=== PATIENT | female | born 1965 | race Caucasian/White ===

== ENCOUNTER 2016-10-21 15:14 | Emergency (ER) | payer MEDICARE ==
--- NOTE | 2016-10-21 16:50 | ED Physician Documentation ---
Fall - HISTORIAN Historian: patient - HPI Stated Complaint: fall Chief Complaint: Fall Additional Information: Tells nurse she fell yesterday. Tells this examiner that she fell today at 0500. Hit back of head on the concrete. Has bruised right upper arm. Says she falls a lot because she has had 4 knee replacements in 17 months. - ROS CONST: no problems - PAST HX Past History: other (chronic back pain, chronic pain) Allergies/Adverse Reactions: Allergies Allergy/AdvReac Type Severity Reaction Status Date / Time Penicillins AdvReac Hives Verified 10/21/16 15:33 Home Medications: Ambulatory Orders Medication Instructions Recorded Furosemide [Furosemide] 20 mg PO BID 01/28/16 Potassium Chloride [Klor-Con 10 mg PO DAILY 01/28/16 Sprinkle] Alprazolam [Alprazolam] 0.5 mg PO TID PRN 05/07/16 Oxycodone HCl/Acetaminophen 1 each PO QID 05/07/16 [Percocet 10/325] - SOCIAL HX Smoking History: cigarettes - FAMILY HX Family History: no significant history - VITAL SIGNS Vital Signs: Vital Signs Temp Pulse Resp BP Pulse Ox 98.6 F 97 H 18 149/79 96 10/21/16 15:40 10/21/16 15:40 10/21/16 15:40 10/21/16 15:40 10/21/16 15:40 - REVIEWED ASSESSMENTS Nursing Assessment Reviewed: Yes Vitals Reviewed: Yes Procedures Wound Location: head Wound Length: 3 cm Wound's Depth, Shape: linear Wound Explored: clean Betadine Prep?: No (chlorhexadine) Wound Repaired With: jerrod (3) Progress - Progress Progress: Right shoulder-three views CLINICAL HISTORY: Fall. Pain and bruising. FINDINGS: Examination right shoulder in multiple views demonstrates degenerative changes with narrowing of the acromioclavicular joint and osteophyte formation. Glenohumeral relationship is anatomic. There is no evident fracture. IMPRESSION: Degenerative changes in the acromioclavicular joint. No fracture. Electronically signed on Oct 21, 2016 4:45:05 PM CDT by: Johnnie BANEGAS non-negative for benzo's, opiates, oycodone (pt takes meds daily within these groupings) ED Results Lab/Radiology - Orders Orders: ED Orders Category Date Time Status SHOULDER 2 VIEWS OR MORE [RAD] Stat Exams 10/21/16 Taken UA [URINALYSIS] Routine Lab 10/21/16 Ordered UDS [DRUG SCREEN URINE MEDICAL ONLY] Routine Lab 10/21/16 Ordered Fall Physical Exam - Physical Exam General Appearance: no acute distress, alert Head: trauma (3 cm linear lac right occipitoparietal area, no active bleeding) Neck: painless ROM Eye: QUYEN (conjugate movements), lids & conjunct. nml ENT: nml external inspection, no dental injury (eating constantly while in ER) Resp/CVS: breath sounds nml, heart sounds nml Neuro: CN's nml as tested, sensation nml, motor nml, other (quite verbal. ) Skin: color nml, dry Back: other (movements w/o pain) Extremities: pelvis stable, other (walks to BR and back w/o apparent discomfort) Joint: Nml gait/weight bearing Discharge Clincal Impression: Contusion of right upper arm Referrals: Primary Doctor,No [Primary Care Provider] - 2 Days Home Medications: Ambulatory Orders Furosemide [Furosemide] 20 mg PO BID 01/28/16 Potassium Chloride [Klor-Con Sprinkle] 10 mg PO DAILY 01/28/16 Alprazolam [Alprazolam] 0.5 mg PO TID PRN 05/07/16 Oxycodone HCl/Acetaminophen [Percocet 10325] 1 each PO QID 05/07/16 Condition: Good Disposition: 01 HOME, SELF-CARE Decision to Admit: NO Decision Time: 17:00
[2016-10-21 17:19] VITALS: BP 160/77
--- NOTE | 2016-10-21 18:18 | Diagnostic Imaging Report ---
SATURNINO MONTILLA~ [facility] [id number] [facility] [address] [address] ~ ~ ~ ~ Report Submission Date: Oct 21, 2016 4:45:05 PM CDT Patient ~ Study Name: LISA LLAMAS ~ Date: Oct 21, 2016 4:22:47 PM CDT ~ Modality Type: CR Gender: F ~ Description: SHOULDER : 69 ~ Institution: [facility] Physician: SATURNINO MONTILLA ~ ~ ~ ~ Right shoulder-three views CLINICAL HISTORY: ~ Fall. ~Pain and bruising. FINDINGS: ~ Examination right shoulder in multiple views demonstrates degenerative changes with narrowing of the acromioclavicular joint and osteophyte formation. ~ Glenohumeral relationship is anatomic. ~There is no evident fracture. IMPRESSION: ~ Degenerative changes in the acromioclavicular joint. ~ No fracture. ~ Electronically signed on Oct 21, 2016 4:45:05 PM CDT by: Johnnie BARNES
[2016-10-22 05:19] LABS: AMPHETAMINE NEGATIVE ng/mL (<1000); BARBITURATES NEGATIVE ng/mL (<300); CANNABINOIDS NEGATIVE ng/mL (<50); COCAINE NEGATIVE ng/mL (<150); METHAMPHETAMINE NEGATIVE ng/mL (<1000); METHYLENEDIOXYMETHAMPHETAMINE NEGATIVE ng/mL (<500)
[2016-10-22 05:20] LABS: APPEARANCE,URINE CLEAR (CLEAR); COLOR,URINE YELLOW (YELLOW); OCCULT BLOOD,URINE TRACE-INTACT (NEGATIVE); PH URINE 5.5 (5.0 - 8.0); UROBILINOGEN URINE 0.2 Eu (0.2-1.0)
== END 2016-10-21 17:17 | disposition home or self-care (01) ==
LOC: ED 15:14
DX: S49.91XA Unspecified injury of right shoulder and upper arm, initial encounter (principal); W19.XXXA Unspecified fall, initial encounter; Y93.9 Activity, unspecified; Y99.9 Unspecified external cause status
CPT/HCPCS: 73030; 80365; 80377; 81002; 99283; G0481; G0482

== ENCOUNTER 2017-09-04 09:41 | Outpatient (CLI) | payer MEDICARE, OTHER ==
--- NOTE | 2017-09-04 15:49 | Diagnostic Imaging Report ---
BEBE PURDY [facility] [address] [facility] [address] [address] Report Submission Date: Sep 04, 2017 10:45:53 AM [employer] Patient Study Name: LISA LLAMAS Date: Sep 04, 2017 10:02:48 AM [employer] Modality Type: CR Gender: F Description: CHEST : 69 Institution: [facility] Physician: BEBE PURDY Examination: Plain film ribs bilateral History: BILATERAL RIB PAIN AFTER FALL (Hx) / RIB PAIN (DICOM Hx) / RIB PAIN ( Pt comments) Findings: 5 views of the left and right ribs demonstrates normal cortical margins. No fracture or dislocation. Underlying parenchymal without abnormality. Shoulder articular degenerative changes. Impression: No rib fracture/abnormality. Electronically signed on Sep 04, 2017 10:45:53 AM [employer] by: Serjio BARNES
== END 2017-09-04 09:42 ==
LOC: RAD 09:41
PROVIDERS: ATTEND Family Medicine
DX: R07.81 Pleurodynia (principal)
CPT/HCPCS: 71110

== ENCOUNTER 2017-10-01 04:35 | Emergency (ER) | payer MEDICARE, OTHER ==
[2017-10-01] MEDS ORDERED: HALOPERIDOL LACTATE 5 MG/ML VIAL IM ONE ×3 (05:26→05:53)
--- NOTE | 2017-10-01 06:38 | ED Physician Documentation ---
Altered Mental Status - HISTORIAN Historian: patient, other (law enforcement) - HPI Stated Complaint: aggitated, halucinating, brought in by audit tech Complaint: Altered Mental Status Onset: other (law enforcemens says she has recurrent hx of psyche breakdowns- she aparently has issues w/ her ex- who has custody of her daughter=- reportedly due to psyche problems. we have list of meds but no idea of compliance. after haldol 10mg im she became more calm and is allowing blood draw and urine for testing) Character of Altered Mental Status: disoriented, confused, combative Context: recent alcohol intake (pt cuffed to bed rail lt wrist at adm) Cognition is Usually: alert but confused Associated Symptoms: none (known at this time. one of the officers said he drove by her house several days ago in pvt auto and off duty and she was walking up and down sidewalk in front of her house thrashing arms yelling at apparent persons not there) - ROS EYES/ENT: denies: problems with vision CVS/RESP: denies: shortness of breath, palpitations, cough GI/: denies: abdominal pain, vomiting, nausea MS/SKIN/LYMPH: none - PAST HX Past History: confusion, psychiatric disorder, schizophrenia, bipolar (at fib in past htn ) Surgeries/Procedures: other (knee appy tonsils) - SOCIAL HX Smoking History: non-smoker Alcohol Use: other (unsure) Drug Use: other (unsure) - FAMILY HX Family History: no significant history - REVIEWED ASSESSMENTS Nursing Assessment Reviewed: Yes Vitals Reviewed: Yes <David Kirk R - Last Filed: 10/01/17 06:26> - HPI Last known Well Date: 10/01/17 Last Known Well Time: 00:00 (cannot confirm time; hard stop in EMR charting system) Last known Well Code/Unknown Code: Unknown - PAST HX Other History: A-Fib, hypertension - SOCIAL HX Drug Use: methamphetamines (patient reports usage) <WILLIAM CASSIDY - Last Filed: 10/01/17 11:43> - HPI Additional Information: pt brought in by police dept after she called them 2 times w/hallucinations saying people inhouse raping her daughter. next time she called yelling and screaming stranger in house standing on her steps. now lshe is thrashing about stating she was broughtv to ed against her will. we swere unable to get hsx or draw blood or get urine. we gave her haldol 2x 5mg each after which she became calm and will allow blood draw and urine (David Kirk) - PAST HX Allergies/Adverse Reactions: Allergies Allergy/AdvReac Type Severity Reaction Status Date / Time Penicillins AdvReac Hives Verified 10/01/17 05:20 Home Medications: Ambulatory Orders Medication Instructions Recorded Gabapentin [Neurontin] 300 mg PO DIRECTED 10/01/17 Metoprolol Tartrate [Lopressor] 50 mg PO DIRECTED 10/01/17 Prazosin HCl [Minipress] 1 mg PO DIRECTED 10/01/17 QUEtiapine FUMARATE [Seroquel] 300 mg PO DIRECTED 10/01/17 Rivaroxaban [Xarelto] 20 mg PO D 10/01/17 Tramadol HCl [Ultram] 50 mg PO DIRECTED 10/01/17 - VITAL SIGNS Vital Signs: Vital Signs Temp Pulse Resp BP Pulse Ox 98.6 F 124 H 20 96/77 99 10/01/17 04:43 10/01/17 04:43 10/01/17 04:43 10/01/17 04:43 10/01/17 04:43 Progress <David Kirk - Last Filed: 10/01/17 06:26> <WILLIAM CASSIDY - Last Filed: 10/01/17 11:43> - Progress Progress: 0700 Patient sleeping on stretcher 0830 Calm and cooperative with nursing; able to draw lab and obtain urine. 1000 Patient awake, continued to state people were in her apartment. Discussed lab results with patient; including positive methamphetamine UDS. Patient states she used 4-5 days ago. Discussed medications, patient reports taking her medications "sometimes" Will consult social media specialist. 1045 Patient reports frequent methamphetamine use. States she is moving today. Skyla working with patient's case management. Will attempt to find drug rehab placement. 1115 Patient refuses inpatient drug treatment. Continues to state she has to go home and pack. States she has to move out today. Skyla continuing to work with Yury and patient's field nurse case manager. Report patient has long history of methamphetamine abuse. Patient denies suicidal thoughts, ideas or plan to harm others. Confirmed patient is not moving today. Is able to return to her home. (WILLIAM CASSIDY) - Lab Results Lab Results: Lab Results 10/01/17 10/01/17 10/01/17 08:15 08:00 07:55 WBC Comment RBC Hemoglobin (Send Out) Hct (Send Out) MCV (Send Out) MCH MCHC (Send Out) RDW Coeff of Sylvester Plt Count Absolute Lymphs (auto) Absolute Monos (auto) Absolute Basos (auto) Neutrophils % Absolute Neutrophils Lymphocytes Monocytes Absolute Eosinophils Basophilia % Eosinophil Count PT INR Sodium Potassium Chloride Carbon Dioxide BUN Creatinine Estimated Creat Clear Est GFR ( Amer) Est GFR (Non-Af Amer) Glucose Calcium Total Bilirubin AST ALT Alkaline Phosphatase Ammonia 52 ug/dL ug/dL (17-87) Total Protein Albumin Urine Color Yellow (YELLOW) Urine Appearance Clear (CLEAR) Urine pH 7.0 (5.0 - 8.0) Ur Specific [place] 1.020 (1.010-1.030) Urine Protein Negative mg/dL mg/dL (NEGATIVE) Urine Ketones Negative mg/dL mg/dL (NEGATIVE) Urine Occult Blood Negative (NEGATIVE) Urine Nitrite Negative (NEGATIVE) Urine Bilirubin Negative (NEGATIVE) Urine Urobilinogen 0.2 Eu Eu (0.2-1.0) Ur Leukocyte Esterase Negative (NEGATIVE) Urine Glucose Negative mg/dL mg/dL (NEGATIVE) Opiates Screen Negative ng/mL ng/mL (<300) Oxycodone Screen Negative ng/mL ng/mL (<100) Methadone Screen Negative ng/mL ng/mL (<200) Ur Barbiturates Screen Negative ng.mL ng.mL (<200) Tricyclic Antidepress Negative ng/mL ng/mL (<300) Phencyclidine Screen Negative ng/mL ng/mL (< 25) Amphetamines Screen Non negative ng/mL H ng/mL (<500) U Methamphetamines Scrn Non negative ng/mL H ng/mL (<500) MDMA Negative ng/mL ng/mL (<500) Benzodiazepines Screen Negative ng/mL ng/mL (<150) Urine Cocaine Screen Negative ng/mL ng/mL (<150) U Cannabinoids Screen Negative ng/mL ng/mL (< 50) Ethyl Alcohol 10/01/17 10/01/17 10/01/17 06:50 06:50 06:50 WBC Comment 9.88 thou/uL thou/uL (4.00-12.00) RBC 4.02 mil/uL mil/uL (3.90-5.20) Hemoglobin (Send Out) 12.6 g/dL g/dL (11.5-16.0) Hct (Send Out) 39.5 % % (34.5-46.5) MCV (Send Out) 98.2 fL fL (80.0-100.0) MCH 31.3 pg pg (28.0-34.0) MCHC (Send Out) 31.9 g/dL g/dL (30.0-36.0) RDW Coeff of Sylvester 15.1 % H % (11.3-14.7) Plt Count 190 thou/uL thou/uL (130-400) Absolute Lymphs (auto) 1.58 thou/uL thou/uL (0.60-4.00) Absolute Monos (auto) 0.62 thou/uL thou/uL (0.00-0.90) Absolute Basos (auto) 0.05 thou/uL thou/uL (0.00-0.50) Neutrophils % 76.5 % % (39.0-79.0) Absolute Neutrophils 7.56 thou/uL thou/uL (1.50-7.70) Lymphocytes 16.0 % % (16.0-50.0) Monocytes 6.3 % % (0.0-11.0) Absolute Eosinophils 0.08 thou/uL thou/uL (0.00-0.60) Basophilia % 0.5 % % (0.0-1.5) Eosinophil Count 0.8 % % (0.0-6.8) PT 11.0 Seconds Seconds (9.4-11.6) INR 1.05 (0.9-1.2) Sodium 142 mmol/L mmol/L (136-145) Potassium 3.9 mmol/L mmol/L (3.5-5.1) Chloride 101 mmol/L mmol/L (98-107) Carbon Dioxide 30 mmol/L mmol/L (22-30) BUN 10 mg/dL mg/dL (7-17) Creatinine 0.70 mg/dL mg/dL (0.52-1.04) Estimated Creat Clear 137 Est GFR ( Amer) > 60 (60 - ) Est GFR (Non-Af Amer) > 60 (60 - ) Glucose 114 mg/dL H mg/dL (74-106) Calcium 9.6 mg/dL mg/dL (8.4-10.2) Total Bilirubin 0.8 mg/dL mg/dL (0.2-1.3) AST 27 U/L U/L (15-46) ALT 35 U/L U/L (13-69) Alkaline Phosphatase 60 U/L U/L (38-126) Ammonia Total Protein 6.9 g/dL g/dL (6.3-8.2) Albumin 4.0 g/dL g/dL (3.5-5.0) Urine Color Urine Appearance Urine pH Ur Specific [place] Urine Protein Urine Ketones Urine Occult Blood Urine Nitrite Urine Bilirubin Urine Urobilinogen Ur Leukocyte Esterase Urine Glucose Opiates Screen Oxycodone Screen Methadone Screen Ur Barbiturates Screen Tricyclic Antidepress Phencyclidine Screen Amphetamines Screen U Methamphetamines Scrn MDMA Benzodiazepines Screen Urine Cocaine Screen U Cannabinoids Screen Ethyl Alcohol < 10.0 mg/dL mg/dL (0.0-10.0) - Orders Orders: ED Orders Category Date Time Status Place IV Lock 1T Care 10/01/17 06:[address] IV Lock 1T Care 10/01/17 06:52 Completed ALCOHOL MEDICAL USE ONLY Routine Lab 10/01/17 06:50 Completed AMMONIA Routine Lab 10/01/17 07:55 Completed AMPHETAMINES,QUANT,URINE Routine Lab 10/01/17 08:25 Received CBC REF Routine Lab 10/01/17 06:50 Completed CMP Routine Lab 10/01/17 06:50 Completed DRUG SCREEN URINE MEDICAL ONLY Routine Lab 10/01/17 08:15 Completed PT-INR Routine Lab 10/01/17 06:50 Completed URINALYSIS Routine Lab 10/01/17 08:00 Completed 0.9 % Sodium Chloride [Normal Saline] 1,000 ml Med 10/01/17 10:07 Discontinued IV NOW Haloperidol Lactate [Haldol] Med 10/01/17 05:27 Discontinued 5 mg IM .STK-MED ONE Haloperidol Lactate [Haldol] Med 10/01/17 05:26 Discontinued 5 mg IM NOW ONE Haloperidol Lactate [Haldol] Med 10/01/17 05:53 Discontinued 5 mg IM NOW ONE Altered Mental Status Physical - Physical Exam General Appearance: other (agitated thrashing about constant talking-much non undestandable prior to haldol) Neuro/Psych: anxiety alert, abnml respond to command, eyes open. No: mood/affect nml Peripheral Exam: motor nml (moves all extremities in apparent purposful manner) HEENT: QUYEN, no apparent trauma, ENT inspection nml Neck: normal inspection Respiratory: no resp distress, chest non-tender, breath sounds normal CVS: reg rate & rhythm, heart sounds normal Abdomen: non-tender Skin: warm/dry, normal color. No: cyanosis, diaphoresis, jaundice, mottled ( after haldol) Extremities: normal range of motion, no evidence of injury <David Kirk - Last Filed: 10/01/17 06:26> Discharge <David Kirk - Last Filed: 10/01/17 06:26> Decision to Admit: NO Decision Time: 11:41 <WILLIAM CASSIDY - Last Filed: 10/01/17 11:43> Clincal Impression: Methamphetamine abuse, Visual hallucination Referrals: Emilio Alvares MD [Primary Care Provider] - 2 Days Additional Instructions: Stop using methampetamines Call Subhash at [phone] today Crisis Hotline: [phone] Condition: Stable Disposition: 01 HOME, SELF-CARE
[2017-10-01 07:25] LABS: eGFR (African) > 60; eGFR (Non-African) > 60
[2017-10-01 08:17] LABS: APPEARANCE,URINE Clear (CLEAR); COLOR,URINE Yellow (YELLOW); OCCULT BLOOD,URINE Negative (NEGATIVE); UROBILINOGEN URINE 0.2 Eu (0.2-1.0)
[2017-10-01 08:25] LABS: CANNABINOIDS NEGATIVE ng/mL (< 50); METHYLENEDIOXYMETHAMPHETAMINE NEGATIVE ng/mL (<500)
[2017-10-01] MEDS ORDERED: 0.9 % SODIUM CHLORIDE 1,000 ML IV ONE (10:07)
[2017-10-01 11:11] LABS: BASO % 0.5 % (0.0-1.5); EOS % 0.8 % (0.0-6.8); LYMPH ABS # 1.58 thou/uL (0.60-4.00); MCH. 31.3 pg (28.0-34.0); MCV 98.2 fL (80.0-100.0); MONOCYTE % 6.3 % (0.0-11.0); MONOCYTE ABS # 0.62 thou/uL (0.00-0.90); PLATELET COUNT 190 thou/uL (130-400)
[2017-10-01 11:46] VITALS: BP 124/64
== END 2017-10-01 11:44 | disposition home or self-care (01) ==
LOC: ED 04:35
DX: F15.10 Other stimulant abuse, uncomplicated (principal); R44.1 Visual hallucinations
CPT/HCPCS: 80053; 81002; 82140; 85025; 85610; G0480; G0481; J1630; J7030; 80320; 80377; 96365; 96372; 99283; S1016